=== PATIENT | male | born 1980 | race Caucasian/White ===

== ENCOUNTER → 2017-11-10 | Outpatient (CLI) | payer BC ==
--- NOTE | 2017-11-10 15:47 | NM ---
EXAMINATION TYPE: NM hepatobiliary w CCK DATE OF EXAM: 11/10/2017 COMPARISON: Ultrasound gallbladder 10/23/2017 HISTORY: Right upper quadrant pain TECHNIQUE: After the intravenous administration of 5.43 mCi Tc 99m Mebrofenin hepatobiliary scintigra phy is performed. Immediate images post injection. FINDINGS: There is satisfactory initial accumulation of tracer by the liver. The gallbladder is visualized wit hin 4 minutes. The small bowel activity is noted within 8 minutes. At one hour CCK was administered , patient was injected with 1.45 mcg of Kinevac, and gallbladder ejection fraction is calculated at 1 0 %, however, technical factors likely alter this measurement. IMPRESSION: The exam is limited by overlying bowel. Cystic duct is thought to be patent. Ejection fra ction is not thought likely to be accurate.
== END | disposition home or self-care (01) ==
LOC: RADNMMAIN 12:43
PROVIDERS: ATTEND Internal Medicine Gastroenterology
DX: R10.11 Right upper quadrant pain (principal)
CPT/HCPCS: 78227; A9537; J2805

== ENCOUNTER 2017-11-16 16:49 | Emergency (ER) | payer BC ==
[2017-11-16] MEDS ORDERED: SODIUM CHLORIDE 0.9% 1,000 ML IV STA (20:02)
[2017-11-16] MEDS ORDERED: KETOROLAC 30 MG/ML 1 ML VIAL IVP STA (20:06)
[2017-11-16 20:22] LABS: Basophils % (A) 1 %; Eosinophils # (A) 0.1 k/uL (0-0.7); Eosinophils % (A) 2 %; HCT 45.8 % (39.0-53.0); HGB 15.9 gm/dL (13.0-17.5); Lymphocytes % (A) 25 %; MCH 30.9 pg (25.0-35.0); MCHC 34.7 g/dL (31.0-37.0); Mean Platelet Volume 7.7; Monocytes # (A) 0.5 k/uL (0-1.0); Monocytes % (A) 6 %; Neutrophils % (A) 65 %; Platelet Count 185 k/uL (150-450); RBC 5.15 m/uL (4.30-5.90); RDW 13.5 % (11.5-15.5); WBC 7.8 k/uL (3.8-10.6)
[2017-11-16 20:28] LABS: Appearance,Urine Clear (Clear); Bilirubin,Urine Negative (Negative); Blood,Urine Trace (Negative); Color,Urine Yellow; Glucose,Urine (UA) Negative (Negative); Ketones,Urine Negative (Negative); Leukocyte Esterase,Urine Negative (Negative); Mucus,Urine Few /hpf; Nitrite,Urine Negative (Negative); Protein,Urine Trace (Negative); RBC,Urine 3 /hpf (0-5); Specific Gravity,Urine 1.022 (1.001-1.035); Sperm,Urine Rare /hpf; Urobilinogen,Urine <2.0 mg/dL (<2.0); WBC,Urine <1 /hpf (0-5)
[2017-11-16 20:31] LABS: ALT 37 U/L (21-72); AST 22 U/L (17-59); Albumin 4.6 g/dL (3.5-5.0); Alkaline Phosphatase 73 U/L (38-126); Amylase 62 U/L (30-110); Anion Gap 13 mmol/L; Blood Urea Nitrogen 19 mg/dL (9-20); Calcium 9.8 mg/dL (8.4-10.2); Carbon Dioxide 25 mmol/L (22-30); Chloride 104 mmol/L (98-107); Glucose 85 mg/dL (74-99); Lipase 66 U/L (23-300); Magnesium 2.1 mg/dL (1.6-2.3); Potassium 4.3 mmol/L (3.5-5.1); Sodium 142 mmol/L (137-145); Total Bilirubin 0.5 mg/dL (0.2-1.3)
[2017-11-16 20:42] LABS: Creatine Kinase 107 U/L (55-170)
[2017-11-16 20:55] LABS: Creatine Kinase MB 0.3 ng/mL (0.0-2.4); Troponin I <0.012 ng/mL (0.000-0.034)
--- NOTE | 2017-11-16 21:12 | XR ---
EXAMINATION: XR chest 2V DATE AND TIME: 11/16/2017 8:16 PM ORDERING PROVIDER: Derek Grover MD CLINICAL INDICATION: abdominal pain TECHNIQUE: PA and lateral COMPARISON: None. DESCRIPTION: EKG leads. The cardiac silhouette is not enlarged. The mediastinal and pleural silhouett es are unremarkable. The lungs are clear. The pleural spaces are negative. The skeletal structures are intact without focal findings. The soft tissues are unremarkable. IMPRESSION: NO ACUTE PROCESS.
--- NOTE | 2017-11-16 21:13 | XR ---
EXAMINATION TYPE: XR KUB DATE OF EXAM: 11/16/2017 COMPARISON: 10/23/2017 HISTORY: Pain, history of partial splenectomy TECHNIQUE: 2 upright views FINDINGS: No abnormal gas collections, the bowel gas pattern is normal. Skeletal structures and soft tissues are unremarkable. The visualized lung bases and pleural spaces and cardiac silhouette are unremarkable. IMPRESSION: Negative examination.
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
[2017-11-16] MEDS ORDERED: MAG HYDROX/AL HYDROX/SIMETH 30 ML, HYOSCYAMINE ELIXIR 10 ML, CIMETIDINE HCL 300 MG PO STA ×3 (21:45)
[2017-11-16 22:37] VITALS: BP 110/75; PULSE 87; RESP 20; TEMP 97.8
== END 2017-11-16 22:37 | disposition home or self-care (01) ==
LOC: EC 16:49
DX: K29.70 Gastritis, unspecified, without bleeding (principal); R07.2 Precordial pain; F17.200 Nicotine dependence, unspecified, uncomplicated; Z86.14 Personal history of Methicillin resistant Staphylococcus aureus infection; Z88.0 Allergy status to penicillin; Z88.1 Allergy status to other antibiotic agents; Z88.6 Allergy status to analgesic agent; Z91.010 Allergy to peanuts; Z91.030 Bee allergy status; Z90.49 Acquired absence of other specified parts of digestive tract; Z90.81 Acquired absence of spleen
CPT/HCPCS: 36415; 93005; 85379; 83880; 80053; 82150; 82550; 82553; 83605; 83690; 83735; 84484; 85025; 81001; 71046; 74018; 99284; 96374; 96361 ×2; J1885

== ENCOUNTER 2018-10-22 19:55 | Observation (INO) | payer BC ==
[2018-10-22] MEDS ORDERED: NITROGLYCERIN SL TABS 0.4 MG TAB SUBLINGUAL STA ×3 (20:54)
[2018-10-22] MEDS ORDERED: ASPIRIN 81 MG PO STA (20:54)
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
[2018-10-22 22:24] LABS: Basophils % (A) 1 %; Eosinophils # (A) 0.2 k/uL (0-0.7); Eosinophils % (A) 3 %; HCT 42.2 % (39.0-53.0); HGB 14.5 gm/dL (13.0-17.5); Lymphocytes # (A) 1.3 k/uL (1.0-4.8); Lymphocytes % (A) 21 %; MCH 30.9 pg (25.0-35.0); MCHC 34.4 g/dL (31.0-37.0); Mean Platelet Volume 7.1; Monocytes # (A) 0.4 k/uL (0-1.0); Monocytes % (A) 7 %; Neutrophils # (A) 4.4 k/uL (1.3-7.7); Neutrophils % (A) 67 %; Platelet Count 178 k/uL (150-450); RBC 4.69 m/uL (4.30-5.90); RDW 13.1 % (11.5-15.5); WBC 6.5 k/uL (3.8-10.6)
[2018-10-22 22:27] LABS: INR 0.9 (<1.2); Partial Thromboplastin Time 25.6 sec (22.0-30.0); Prothrombin Time 10.2 sec (9.0-12.0)
[2018-10-22 22:29] LABS: ALT 32 U/L (21-72); AST 21 U/L (17-59); Albumin 3.9 g/dL (3.5-5.0); Alkaline Phosphatase 55 U/L (38-126); Anion Gap 7 mmol/L; Blood Urea Nitrogen 18 mg/dL (9-20); Calcium 9.6 mg/dL (8.4-10.2); Carbon Dioxide 25 mmol/L (22-30); Chloride 109 mmol/L (98-107); Glucose 109 mg/dL (74-99); Magnesium 2.1 mg/dL (1.6-2.3); Sodium 141 mmol/L (137-145); Total Bilirubin 0.2 mg/dL (0.2-1.3); Total Protein 6.3 g/dL (6.3-8.2)
[2018-10-22 22:39] LABS: Creatine Kinase 86 U/L (55-170)
[2018-10-22 22:53] LABS: Creatine Kinase MB 0.6 ng/mL (0.0-2.4); Troponin I <0.012 ng/mL (0.000-0.034)
--- NOTE | 2018-10-22 23:11 | CT ---
EXAMINATION TYPE: CT angio chest DATE OF EXAM: 10/22/2018 10:46 PM COMPARISON: None HISTORY: chest pain, tightness CT DLP: 336.7 mGycm Automated exposure control for dose reduction was used. CONTRAST: CTA scan of the thorax is performed with IV Contrast, patient injected with 94 mL of Isovue 370, pulm onary embolism protocol. There are 3-D post processed images.. FINDINGS: The lungs are clear of infiltrate. There is no pleural effusion. There is no evidence of a pulmonary mass. There is no mediastinal adenopathy. There are no hilar masses. Thoracic aorta appears normal without evidence of aneurysm or dissection. There is normal contrast opacification of the pulmonary arteries. There are no filling defects. Heart size is normal. There is no pericardial effusion. Bony thorax appears intact. IMPRESSION: NORMAL EXAM. NO EVIDENCE OF PULMONARY EMBOLISM.
[2018-10-22] MEDS ORDERED: NITROGLYCERIN SL TABS 0.4 MG TAB SUBLINGUAL PRN (23:50)
[2018-10-23 00:50] VITALS: BMI 21.7
[2018-10-23] MEDS: NITROGLYCERIN OINT 1 INCH/GM PACKET TOPICAL SCH ×3 (01:20→12:59)
[2018-10-23 03:46] VITALS: TEMP 97.9
[2018-10-23 04:30] LABS: Cholesterol 148 mg/dL (<200); HDL Cholesterol 53 mg/dL (40-60); LDL Cholesterol,Calculated 79 mg/dL (0-99); Triglycerides 81 mg/dL (<150)
[2018-10-23 04:34] LABS: Creatine Kinase 80 U/L (55-170)
[2018-10-23 04:47] LABS: Creatine Kinase MB 0.5 ng/mL (0.0-2.4); Troponin I <0.012 ng/mL (0.000-0.034)
[2018-10-23] MEDS ORDERED: ASPIRIN 325 MG TAB PO SCH (09:00)
[2018-10-23 10:12] LABS: Creatine Kinase 74 U/L (55-170)
[2018-10-23 10:25] LABS: Creatine Kinase MB 0.4 ng/mL (0.0-2.4); Troponin I <0.012 ng/mL (0.000-0.034)
--- NOTE | 2018-10-23 11:41 | P.CRDCN ---
History of Present Illness Consult reason: chest pain History of present illness: This is Dr. Baltazar dictating a consult on this patient The patient was interviewed and examined by me IMPRESSION / ASSESSMENT: Atypical chest discomfort normal cardiac enzymes Current smoker No diabetes hypertension and dyslipidemia PLAN: Patient may go home from a cardiac standpoint today and outpatient follow-up and workup with Dr. Martínez HPI 37-year-old male patient presenting with chest discomfort while sitting at the desk. He described it as left-sided tightness without any associated shortness of breath nausea or diaphoresis Normal cardiac enzymes No D dimers, CT of the chest into for pulmonary embolism per radiology ROS: No fever chills or rigors, no cough, phlegm or expectoration, no nausea, vomiting or diarrhea, no hematuria, dysuria, no musculoskeletal complaints, no strokes or seizures, no skin lesions. EXAMINATION Normal blood pressure normal heart rates Breath sounds are clear no rhonchi no crackles Heart sounds S1-S2 normal no murmurs or gallop. Abdomen soft nontender extremities warm no edema No chest wall tenderness Recent hand injury and it is in a cast REVIEW OF LABS, ECG No evidence for pulmonary embolus him on CT Normal cardiac enzymes 2 normal electrolytes Twelve-lead ECG shows early repolarization abnormality no evidence for acute myocardial infarction NH segment normal Past Medical History Past Medical History: GERD/Reflux Additional Past Medical History / Comment(s): chronic ABDOMINAL PAIN and intestinal issues currently seeing GI doc, fractures right hand currently in cast History of Any Multi-Drug Resistant Organisms: MRSA Date of last positivie culture/infection: 2006 MDRO Source:: left finger Past Surgical History: Hernia Repair Additional Past Surgical History / Comment(s): partial splenectomy, LEFT INDEX FINGER surg Past Anesthesia/Blood Transfusion Reactions: No Reported Reaction Past Psychological History: No Psychological Hx Reported Smoking Status: Current every day smoker Past Alcohol Use History: None Reported Past Drug Use History: Marijuana - Past Family History Mother Family Medical History: No Reported History Medications and Allergies Home Medications Medication Instructions Recorded Confirmed Type Omeprazole [PriLOSEC] 20 mg PO DAILY PRN 10/22/18 10/22/18 History Allergies Allergy/AdvReac Type Severity Reaction Status Date / Time clindamycin Allergy Abdominal Verified 10/22/18 20:49 Pain ibuprofen [From Advil] Allergy HIVES Verified 10/22/18 20:49 peanut Allergy Anaphylaxis Verified 10/22/18 20:49 Penicillins Allergy SWELLING Verified 10/22/18 20:49 OF THROAT venom-honey bee AdvReac Anaphylaxis Verified 10/22/18 20:49 [bee venom (honey bee)] Physical Exam Vitals: Vital Signs Temp Pulse Pulse Resp BP BP Pulse Ox 10/23/18 03:53 16 10/23/18 03:44 97.9 F 49 L 16 116/65 98 10/23/18 01:00 16 10/23/18 00:37 98.2 F 55 L 16 121/71 98 10/23/18 00:00 57 L 14 115/65 96 10/22/18 23:00 61 13 116/71 96 10/22/18 22:12 98.2 F 53 L 16 123/81 98 10/22/18 22:00 53 L 14 123/81 97 10/22/18 21:52 78 12 97 10/22/18 19:58 97.8 F 91 16 138/77 100 Intake and Output 10/22/18 10/23/18 10/23/18 22:59 06:59 14:59 Other: Voiding Method Toilet # Voids 2 Weight 72.575 kg 72.5 kg Results 10/22/18 21:45 10/22/18 21:45 Cardiac Enzymes 10/22/18 10/22/18 10/23/18 Range/Units 21:45 21:45 03:13 AST 21 (17-59) U/L CK-MB (CK-2) 0.6 0.5 (0.0-2.4) ng/mL Troponin I <0.012 <0.012 (0.000-0.034) ng/mL Coagulation 10/22/18 Range/Units 21:45 PT 10.2 (9.0-12.0) sec APTT 25.6 (22.0-30.0) sec Lipids 10/23/18 Range/Units 03:13 Triglycerides 81 (<150) mg/dL Cholesterol 148 (<200) mg/dL HDL Cholesterol 53 (40-60) mg/dL CBC 10/22/18 Range/Units 21:45 WBC 6.5 (3.8-10.6) k/uL RBC 4.69 (4.30-5.90) m/uL Hgb 14.5 (13.0-17.5) gm/dL Hct 42.2 (39.0-53.0) % Plt Count 178 (150-450) k/uL Comprehensive Metabolic Panel 10/22/18 Range/Units 21:45 Sodium 141 (137-145) mmol/L Potassium 4.0 (3.5-5.1) mmol/L Chloride 109 H (98-107) mmol/L Carbon Dioxide 25 (22-30) mmol/L BUN 18 (9-20) mg/dL Creatinine 0.86 (0.66-1.25) mg/dL Glucose 109 H (74-99) mg/dL Calcium 9.6 (8.4-10.2) mg/dL AST 21 (17-59) U/L ALT 32 (21-72) U/L Alkaline Phosphatase 55 (38-126) U/L Total Protein 6.3 (6.3-8.2) g/dL Albumin 3.9 (3.5-5.0) g/dL Current Medications Generic Name Dose Route Start Last Admin Trade Name Freq PRN Reason Stop Dose Admin Aspirin 325 mg 10/23/18 09:00 Aspirin PO DAILY [facility] Nitroglycerin 1 inch 10/23/18 00:00 10/23/18 06:04 Nitro-Bid Oint TOPICAL Not Given Q6HR LE[facility]ARDO Nitroglycerin 0.4 mg 10/22/18 23:50 Nitrostat SUBLINGUAL Q5M PRN Chest Pain Sodium Chloride 10 ml 10/23/18 09:00 Saline Flush IV BID LEOBARDO Intake and Output 10/22/18 10/23/18 10/23/18 22:59 06:59 14:59 Other: Voiding Method Toilet # Voids 2 Weight 72.575 kg 72.5 kg 10/22/18 21:45 10/22/18 21:45
[2018-10-23 11:43] VITALS: BP 99/61; PULSE 54; RESP 16
--- NOTE | 2018-10-23 16:28 | P.HPIM ---
History of Present Illness Combined H&P and discharge summary This is a pleasant 37 years old male with past medical history of GERD, fracture of the right hand status post cast of his right hand and distal forearm who presents because of left-sided chest pain, close to his left armpit , nonradiating, about 6/10 in severity, and down today to 1/10 which is mild, felt like type of one-day duration. No associated nausea vomiting no dyspnea or sweating or dizziness. Patient received aspirin 325 mg this morning and had started that well. His chest pain is improved. Patient has been already evaluated by clothing worker Dr. Martínez recommended him to be discharged today and follow up with him in the office as an outpatient. Patient himself feels ready to be discharged home. Problems and management plan was discussed with the patient and he verbalized understanding and acceptance. Patient was found stable and can be discharged home however he needs follow-up as an outpatient. Patient agrees to call and make appointment with Dr. Martínez the clothing worker and his PCP Dr. Vincent in one week for both of them as instructed. No appointments could be made today by medical staff as it is weakened. Gen: patient is a AAOx3, no distress CVS: S1-S2, RRR, no murmur Lungs: B/L CTA, no wheezing Abdomen: soft, no distention, no tenderness, positive bowel sounds Extremity: no leg edema or induration Time spent more than 35 minutes Past Medical History Past Medical History: GERD/Reflux Additional Past Medical History / Comment(s): chronic ABDOMINAL PAIN and intestinal issues currently seeing GI doc, fractures right hand currently in cast History of Any Multi-Drug Resistant Organisms: MRSA Date of last positivie culture/infection: 2006 MDRO Source:: left finger Past Surgical History: Hernia Repair Additional Past Surgical History / Comment(s): partial splenectomy, LEFT INDEX FINGER surg Past Anesthesia/Blood Transfusion Reactions: No Reported Reaction Past Psychological History: No Psychological Hx Reported Smoking Status: Current every day smoker Past Alcohol Use History: None Reported Past Drug Use History: Marijuana - Past Family History Mother Family Medical History: No Reported History Medications and Allergies Home Medications Medication Instructions Recorded Confirmed Type Omeprazole [PriLOSEC] 20 mg PO DAILY PRN 10/22/18 10/22/18 History Allergies Allergy/AdvReac Type Severity Reaction Status Date / Time clindamycin Allergy Abdominal Verified 12/28/18 20:49 Pain ibuprofen [From Advil] Allergy HIVES Verified 10/22/18 20:49 peanut Allergy Anaphylaxis Verified 10/22/18 20:49 Penicillins Allergy SWELLING Verified 10/22/18 20:49 OF THROAT venom-honey bee AdvReac Anaphylaxis Verified 10/22/18 20:49 [bee venom (honey bee)] Physical Exam Vitals: Vital Signs Temp Pulse Pulse Resp BP BP Pulse Ox 10/23/18 11:42 97.9 F 54 L 16 99/61 98 10/23/18 08:10 97.9 F 51 L 14 124/71 98 10/23/18 07:24 99 10/23/18 03:53 16 10/23/18 03:44 97.9 F 49 L 16 116/65 98 10/23/18 01:00 16 10/23/18 00:37 98.2 F 55 L 16 121/71 98 10/23/18 00:00 57 L 14 115/65 96 10/22/18 23:00 61 13 116/71 96 10/22/18 22:12 98.2 F 53 L 16 123/81 98 10/22/18 22:00 53 L 14 123/81 97 10/22/18 21:52 78 12 97 10/22/18 19:58 97.8 F 91 16 138/77 100 Intake and Output 10/23/18 10/23/18 10/23/18 06:59 14:59 22:59 Other: Voiding Method Toilet Toilet # Voids 2 1 Weight 72.5 kg Results CBC & Chem 7: 10/22/18 21:45 10/22/18 21:45 Labs: Abnormal Lab Results - Last 24 Hours (Table) 10/22/18 Range/Units 21:45 Chloride 109 H (98-107) mmol/L Glucose 109 H (74-99) mg/dL Thrombosis Risk Factor Assmnt - Choose All That Apply Any of the Below Risk Factors Present?: No
--- NOTE | 2018-10-23 16:29 | P.DS ---
Providers Date of admission: 10/22/18 23:50 Attending physician: Jazmyne Whelan Consults: 10/22/18 23:50 Consult Physician Urgent Consulting Provider: Courtney Stevens Consult Reason/Comments: cp Do you want consulting provider notified?: Yes Primary care physician: Marianela Vincent [facility] Course: Please refer to my H&P Plan - Discharge Summary New Discharge Prescriptions: New Aspirin 325 mg PO DAILY #10 tab Continue Omeprazole [PriLOSEC] 20 mg PO DAILY PRN PRN Reason: Heartburn Discharge Medication List Omeprazole [PriLOSEC] 20 mg PO DAILY PRN 10/22/18 [History] Aspirin 325 mg PO DAILY #10 tab 10/23/18 [Rx] Follow up Appointment(s)/Referral(s): Shaquille Baltazar MD [STAFF PHYSICIAN] - 1 Week (office will call the patient with a time and date to follow up for stress test.) Marianela Vincent III, MD [Primary Care Provider] - 1-2 days Patient Instructions/Handouts: Chest Pain (DC)
== END 2018-10-23 16:55 | disposition home or self-care (01) ==
LOC: EC 19:55 → 1SOBS 23:50
PROVIDERS: ADMIT Internal Medicine; ATTEND Internal Medicine
DX: R07.89 Other chest pain (principal); R20.2 Paresthesia of skin; K21.9 Gastro-esophageal reflux disease without esophagitis; F17.200 Nicotine dependence, unspecified, uncomplicated; G89.29 Other chronic pain; S62.91XA Unspecified fracture of right hand, initial encounter for closed fracture; R10.9 Unspecified abdominal pain; Z79.899 Other long term (current) drug therapy; Z88.0 Allergy status to penicillin; Z88.6 Allergy status to analgesic agent; Z88.1 Allergy status to other antibiotic agents; Z91.030 Bee allergy status; Z91.010 Allergy to peanuts; Z86.14 Personal history of Methicillin resistant Staphylococcus aureus infection; Z90.81 Acquired absence of spleen; X58.XXXA Exposure to other specified factors, initial encounter
CPT/HCPCS: 99285; 36415; 94760; 93005; 80061; 80053; 82550 ×2; 82553 ×2; 83735; 84484 ×2; 85025; 85610; 85730; 71275; G0378 ×2; Q9967

== ENCOUNTER 2019-02-05 11:10 | Emergency (ER) | payer BC ==
[2019-02-05 11:15] VITALS: TEMP 97.9
--- NOTE | 2019-02-05 12:13 | ED ---
Skin/Abscess/FB HPI - General Chief complaint: Skin/Abscess/Foreign Body Stated complaint: RASH ON HANDS AND BODY Time Seen by Provider: 02/05/19 11:18 Source: patient, RN notes reviewed, old records reviewed Mode of arrival: ambulatory Limitations: no limitations - History of Present Illness Initial comments: 38-year-old male presents today with a few days of pruritic rash over his hands. He states that going up his arms and his neck and groin. Reports is also some papular like lesions. Patient states he has no exposures to similar rashes. Denies any recent travel history. Denies any fever or chills or other complaints. - Related Data Home Medications Medication Instructions Recorded Confirmed Omeprazole [PriLOSEC] 20 mg PO DAILY PRN 10/22/18 10/22/18 Previous Rx's Medication Instructions Recorded Aspirin 325 mg PO DAILY #10 tab 10/23/18 Hydrocortisone [Hydrocortisone 1 applic TOPICAL TID #28 gm 02/05/19 0.05%] Permethrin 5% Cream [Elimite] 1 applic TOPICAL ONCE #60 cream..g. 02/05/19 methylPREDNISolone Dose Pack 4 mg PO DIRECTED #21 package 02/05/19 [Medrol Dose Pack] Allergies Allergy/AdvReac Type Severity Reaction Status Date / Time clindamycin Allergy Abdominal Verified 02/05/19 11:15 Pain ibuprofen [From Advil] Allergy HIVES Verified 02/05/19 11:15 peanut Allergy Anaphylaxis Verified 02/05/19 11:15 Penicillins Allergy SWELLING Verified 02/05/19 11:15 OF THROAT venom-honey bee AdvReac Anaphylaxis Verified 02/05/19 11:15 [bee venom (honey bee)] Review of Systems ROS Statement: Those systems with pertinent positive or pertinent negative responses have been documented in the HPI. ROS Other: All systems not noted in ROS Statement are negative. Past Medical History Past Medical History: GERD/Reflux Additional Past Medical History / Comment(s): chronic ABDOMINAL PAIN and intestinal issues currently seeing GI doc, fractures right hand currently in cast History of Any Multi-Drug Resistant Organisms: MRSA Date of last positivie culture/infection: 2006 MDRO Source:: left finger Past Surgical History: Hernia Repair Additional Past Surgical History / Comment(s): partial splenectomy, LEFT INDEX FINGER surg Past Anesthesia/Blood Transfusion Reactions: No Reported Reaction Past Psychological History: No Psychological Hx Reported Smoking Status: Current every day smoker Past Alcohol Use History: None Reported Past Drug Use History: Marijuana - Past Family History Mother Family Medical History: No Reported History General Exam - General Exam Comments Initial Comments: (38-year-old male. No distress. Limitations: no limitations General appearance: alert, in no apparent distress Head exam: Present: atraumatic, normocephalic, normal inspection Eye exam: Present: normal appearance, PERRL, EOMI. Absent: scleral icterus, conjunctival injection, periorbital swelling ENT exam: Present: normal exam, mucous membranes moist Neck exam: Present: normal inspection. Absent: tenderness, meningismus, lymphadenopathy Respiratory exam: Present: normal lung sounds bilaterally. Absent: respiratory distress, wheezes, rales, rhonchi, stridor Cardiovascular Exam: Present: regular rate, normal rhythm, normal heart sounds. Absent: systolic murmur, diastolic murmur, rubs, gallop, clicks GI/Abdominal exam: Present: soft, normal bowel sounds. Absent: distended, tenderness, guarding, rebound, rigid Neurological exam: Present: alert, oriented X3, CN II-XII intact Psychiatric exam: Present: normal affect, normal mood Skin exam: Present: warm, dry, intact, normal color, rash (Pretty papular rash with excoriations over the webspaces of fingers wrists and arms.) Course Vital Signs 02/05/19 02/05/19 11:11 12:25 Temperature 97.9 F Pulse Rate 65 55 L Respiratory 18 16 Rate Blood Pressure 127/65 118/80 O2 Sat by Pulse 98 98 Oximetry Medical Decision Making - Medical Decision Making 38-year-old male presents with a few days of pruritic rash over the web space of fingers and dorsum hands. no History of sick contacts or travel. At this time patient's rash is erythematous papular lesions with evidence of excoriations. Some linear areas between the papular lesions concern for tunneling of scabies. Patient was started on permethrin cream. Discussed appropriate treatment including washing all the sheets and clothing in hot water. All questions answered return parameters were discussed. Disposition Clinical Impression: Scabies Disposition: HOME SELF-CARE Condition: Good Instructions (If sedation given, give patient instructions): Scabies (ED) Additional Instructions: Follow-up with primary care doctor. Return to emergency department if any alarming signs or symptoms occur. Wash all bedding in hot water. Patient should apply the cream at night sleep with it on for 8 hours and then re-shower in the morning. Repeat treatment in one week. Prescriptions: Permethrin 5% Cream [Elimite] 1 applic TOPICAL ONCE #60 cream..g. Hydrocortisone [Hydrocortisone 0.05%] 1 applic TOPICAL TID #28 gm methylPREDNISolone Dose Pack [Medrol Dose Pack] 4 mg PO DIRECTED #21 package Is patient prescribed a controlled substance at d/c from ED?: No Referrals: Marianela Vincent III, MD [Primary Care Provider] - 1-2 days Time of Disposition: 12:10
[2019-02-05 12:30] VITALS: BP 118/80; PULSE 55; RESP 16
== END 2019-02-05 12:25 | disposition home or self-care (01) ==
LOC: EC 11:10
DX: B86 Scabies (principal); F17.200 Nicotine dependence, unspecified, uncomplicated; Z88.0 Allergy status to penicillin; Z88.1 Allergy status to other antibiotic agents; Z88.6 Allergy status to analgesic agent; Z91.010 Allergy to peanuts; Z91.030 Bee allergy status; Z86.14 Personal history of Methicillin resistant Staphylococcus aureus infection
CPT/HCPCS: 99283

== ENCOUNTER 2019-04-18 17:18 | Emergency (ER) | payer BC ==
[2019-04-18 17:52] VITALS: BP 110/71; PULSE 63; RESP 16; TEMP 98.3
--- NOTE | 2019-04-18 18:43 | ED ---
General Adult HPI - General Chief complaint: Skin/Abscess/Foreign Body Stated complaint: Poss tick on back Time Seen by Provider: 04/18/19 18:11 Source: patient, RN notes reviewed Mode of arrival: ambulatory Limitations: no limitations - History of Present Illness Initial comments: 38-year-old male presents to the emergency department for a chief complaint of possible tick bite times one day. Patient states he was working out in the [email or web address] with his friends. States that his friends had a tick on them so he did a full body check before showering. Patient states he noticed a spot on his back that he was not sure if he had been there before. Pt thought it could be a tick. Patient states he was squeezing on it to try to get any parts out but nothing would come out. States he accidentally scratched her. Patient states he wanted someone to look at it to make sure was not a tick. Patient has no other complaints at this time including shortness of breath, chest pain, abdominal pain, nausea or vomiting, headache, or visual changes. - Related Data Home Medications Medication Instructions Recorded Confirmed Omeprazole [PriLOSEC] 20 mg PO DAILY PRN 10/22/18 10/22/18 Allergies Allergy/AdvReac Type Severity Reaction Status Date / Time clindamycin Allergy Abdominal Verified 04/18/19 17:52 Pain ibuprofen [From Advil] Allergy HIVES Verified 04/18/19 17:52 peanut Allergy Anaphylaxis Verified 04/18/19 17:52 Penicillins Allergy SWELLING Verified 04/18/19 17:52 OF THROAT venom-honey bee AdvReac Anaphylaxis Verified 04/18/19 17:52 [bee venom (honey bee)] Review of Systems ROS Statement: Those systems with pertinent positive or pertinent negative responses have been documented in the HPI. ROS Other: All systems not noted in ROS Statement are negative. Past Medical History Past Medical History: GERD/Reflux Additional Past Medical History / Comment(s): chronic ABDOMINAL PAIN and intestinal issues currently seeing GI doc, fractures right hand currently in cast History of Any Multi-Drug Resistant Organisms: MRSA Date of last positivie culture/infection: 2006 MDRO Source:: left finger Past Surgical History: Hernia Repair Additional Past Surgical History / Comment(s): partial splenectomy, LEFT INDEX FINGER surg Past Anesthesia/Blood Transfusion Reactions: No Reported Reaction Past Psychological History: No Psychological Hx Reported Smoking Status: Current every day smoker Past Alcohol Use History: None Reported Past Drug Use History: Marijuana - Past Family History Mother Family Medical History: No Reported History General Exam Limitations: no limitations General appearance: alert, in no apparent distress Head exam: Present: atraumatic, normocephalic, normal inspection Eye exam: Present: normal appearance, PERRL, EOMI. Absent: scleral icterus, conjunctival injection, periorbital swelling ENT exam: Present: normal exam, mucous membranes moist Neck exam: Present: normal inspection, full ROM. Absent: tenderness, meningismus, lymphadenopathy Respiratory exam: Present: normal lung sounds bilaterally. Absent: respiratory distress, wheezes, rales, rhonchi, stridor Cardiovascular Exam: Present: regular rate, normal rhythm, normal heart sounds. Absent: systolic murmur, diastolic murmur, rubs, gallop, clicks GI/Abdominal exam: Present: soft, normal bowel sounds. Absent: distended, tenderness, guarding, rebound, rigid Back exam: Present: other (Patient has a small macule noted on the right lower back. There is erythema minimally around this likely from patient squeezing the area. No evidence of abscess or area of fluctuance. No evidence of cellulitis. No tick bite or remaining parts of tick.) Neurological exam: Present: alert, oriented X3, CN II-XII intact Psychiatric exam: Present: normal affect, normal mood Course Vital Signs 04/18/19 17:50 Temperature 98.3 F Pulse Rate 63 Respiratory 16 Rate Blood Pressure 110/71 O2 Sat by Pulse 99 Oximetry Medical Decision Making - Medical Decision Making 38-year-old male presents to the emergency department for a chief complaint of tick bite. Patient states he was on the [place] with his friends. States that before he showered he did a full body check and noticed a black spot. States he squeezed this area but cannot get any tick parts out so came to the emergency department so we could look at it. On exam the area patient is worried about appears to be a macule. There is mild erythema around the area from patient squeezing this but no evidence of cellulitis. No abscess or fluctuant area. No evidence of tick bite or remaining parts of tick. I believe patient mistake macule for tick. At this time I told patient to keep an eye on it and to follow up with primary care. Patient will return here for any worsening symptoms. Disposition Clinical Impression: Skin macule Disposition: HOME SELF-CARE Condition: Good Instructions (If sedation given, give patient instructions): Acute Rash (ED) Additional Instructions: Please follow up with primary care in 1-2 days. Please return here if you have any worsening symptoms. Is patient prescribed a controlled substance at d/c from ED?: No Referrals: Marianela Vincent III, MD [Primary Care Provider] - 1-2 days Time of Disposition: 18:41
== END 2019-04-18 18:46 | disposition home or self-care (01) ==
LOC: EC 17:18
DX: L98.8 Other specified disorders of the skin and subcutaneous tissue (principal); F17.200 Nicotine dependence, unspecified, uncomplicated; Z86.14 Personal history of Methicillin resistant Staphylococcus aureus infection; Z88.1 Allergy status to other antibiotic agents; Z88.0 Allergy status to penicillin; Z88.6 Allergy status to analgesic agent; Z91.030 Bee allergy status; Z91.010 Allergy to peanuts
CPT/HCPCS: 99281

== ENCOUNTER → 2020-01-04 | Outpatient (CLI) | payer BC ==
--- NOTE | 2020-01-04 15:20 | MR ---
EXAMINATION TYPE: MR knee LT wo con DATE OF EXAM: 01/04/2020 COMPARISON: NONE HISTORY: Left knee pain per order. Outer and posterior pain with swelling for 3 weeks per patient aft er injury TECHNIQUE: Multiplanar, multisequence images of the knee is performed without IV contrast. FINDINGS: MEDIAL MENISCUS: Anterior horn is intact without tear. Abnormal signal posterior horn predominantly o blique and triangular-shaped and configuration extends to inferior articular surface sagittal image 2 4. LATERAL MENISCUS: Anterior and posterior horns are intact without tear. CRUCIATE LIGAMENTS: The anterior and posterior cruciate ligaments are intact and unremarkable. COLLATERAL LIGAMENTS: The medial collateral ligament and lateral collateral ligament complex are inta ct and unremarkable. EXTENSOR MECHANISM: Visualized quadriceps and patellar tendons are intact. EFFUSION: Small suprapatellar joint effusion seen best sagittal image 14. POPLITEAL CYST: Small popliteal/tang cyst measuring 3.9 cm long axis as image 23. TRICOMPARTMENT SPACES: Tricompartment joint space is fairly well-maintained. No significant spurring is seen. CARTILAGE: The tricompartment articular cartilage is preserved. BONE MARROW SIGNAL: No focal abnormal marrow signal is appreciated. OTHER: No additional significant abnormality is appreciated. IMPRESSION: 1. Oblique full thickness tear posterior horn of medial meniscus. 2. Small suprapatellar joint effusion. 3. Small popliteal cyst.
== END | disposition home or self-care (01) ==
LOC: RADMRIMAIN 06:42
PROVIDERS: ATTEND Orthopaedic Surgery
DX: S83.242A Other tear of medial meniscus, current injury, left knee, initial encounter (principal); M71.22 Synovial cyst of popliteal space [Baker], left knee

== ENCOUNTER 2021-05-17 17:59 | Emergency (ER) | payer BC ==
[2021-05-17 18:24] VITALS: BP 125/80; PULSE 77; RESP 18; TEMP 98.1
--- NOTE | 2021-05-17 19:11 | ED ---
General Adult HPI - General Chief complaint: Skin/Abscess/Foreign Body Stated complaint: Dog bite, eye injury Source: patient, RN notes reviewed Mode of arrival: ambulatory Limitations: physical limitation - History of Present Illness Initial comments: 40-year-old white male, alert and oriented 4, presents to the emergency room with complaints of playing with his beagle about an hour prior to arrival and the dog scratched his left upper eyelid. Patient states that his tetanus is up-to-date. He wanted to make sure he didn't need any stitches. Patient denies any other injuries. Patient denies any medical history states he is a half-pack a day smoker -: hour(s) (1) Location: face (Left upper eyelid) Radiation: non-radiation Severity scale (1-10): 3 Quality: other (Stinging) Consistency: constant Improves with: none Worsens with: none Associated Symptoms: denies other symptoms Treatments Prior to Arrival: none - Related Data Home Medications Medication Instructions Recorded Confirmed Omeprazole [PriLOSEC] 20 mg PO DAILY PRN 10/22/18 10/22/18 Allergies Allergy/AdvReac Type Severity Reaction Status Date / Time clindamycin Allergy Abdominal Verified 05/17/21 18:24 Pain ibuprofen [From Advil] Allergy HIVES Verified 05/17/21 18:24 peanut Allergy Anaphylaxis Verified 05/17/21 18:24 Penicillins Allergy SWELLING Verified 05/17/21 18:24 OF THROAT venom-honey bee AdvReac Anaphylaxis Verified 05/17/21 18:24 [bee venom (honey bee)] Review of Systems ROS Statement: Those systems with pertinent positive or pertinent negative responses have been documented in the HPI. ROS Other: All systems not noted in ROS Statement are negative. Past Medical History Past Medical History: GERD/Reflux Additional Past Medical History / Comment(s): chronic ABDOMINAL PAIN and intestinal issues currently seeing GI doc, fractures right hand History of Any Multi-Drug Resistant Organisms: MRSA Date of last positivie culture/infection: 2006 MDRO Source:: left finger Past Surgical History: Hernia Repair Additional Past Surgical History / Comment(s): partial splenectomy, LEFT INDEX FINGER surg Past Anesthesia/Blood Transfusion Reactions: No Reported Reaction Past Psychological History: No Psychological Hx Reported Smoking Status: Current every day smoker Past Alcohol Use History: None Reported Past Drug Use History: Marijuana - Past Family History Mother Family Medical History: No Reported History General Exam Limitations: physical limitation General appearance: alert, in no apparent distress Head exam: Present: atraumatic, normocephalic, normal inspection Eye exam: Present: normal appearance, PERRL, EOMI, other (1 cm laceration to the left upper eyelid, superficial and well approximated). Absent: scleral icterus, conjunctival injection, periorbital swelling ENT exam: Present: normal exam, normal oropharynx, mucous membranes moist Neck exam: Present: normal inspection, full ROM. Absent: tenderness, meningismus, lymphadenopathy, thyromegaly Respiratory exam: Present: normal lung sounds bilaterally. Absent: respiratory distress, wheezes, rales, rhonchi, stridor Cardiovascular Exam: Present: regular rate, normal rhythm, normal heart sounds. Absent: systolic murmur, diastolic murmur, rubs, gallop, clicks GI/Abdominal exam: Present: soft, normal bowel sounds. Absent: distended, tenderness, guarding, rebound, rigid Extremities exam: Present: normal inspection, full ROM, normal capillary refill. Absent: tenderness, pedal edema, joint swelling, calf tenderness Back exam: Present: normal inspection, full ROM. Absent: tenderness, CVA tenderness (R), CVA tenderness (L), muscle spasm, paraspinal tenderness, vertebral tenderness, rash noted Neurological exam: Present: alert, oriented X3, CN II-XII intact Psychiatric exam: Present: normal affect, normal mood Skin exam: Present: warm, dry, intact, normal color. Absent: rash, cyanosis, diaphoretic, erythema, petechiae, pallor, mottled Course Vital Signs 05/17/21 18:21 Temperature 98.1 F Pulse Rate 77 Respiratory 18 Rate Blood Pressure 125/80 O2 Sat by Pulse 97 Oximetry Medical Decision Making - Medical Decision Making Patient's tetanus shot is up-to-date. He has no visual changes, blurred vision or eye pain. Superficial laceration to the left eyebrow was cleaned with normal saline and closed with Dermabond glue. Dr. Malone at bedside to evaluate and was agreeable to this plan of care. Patient was discharged to follow up with ophthalmology as needed. Disposition Clinical Impression: Eyelid laceration Disposition: HOME SELF-CARE Condition: Good Instructions (If sedation given, give patient instructions): Laceration (ED), Skin Adhesive Care (ED) Additional Instructions: Keep clean and dry. Follow-up with the primary care doctor or ophthalmology in 1 week as needed. Return for any signs and symptoms of infection including drainage, redness or fever. Is patient prescribed a controlled substance at d/c from ED?: No Referrals: Marianela Vincent III, MD [Primary Care Provider] - 1-2 days Kg Ruiz MD [STAFF PHYSICIAN] - 1-2 days Time of Disposition: 19:35
[2021-05-17] MEDS ORDERED: TOPICAL SKIN ADHESIVE 1 EACH AMP TOPICAL ONE (19:31)
== END 2021-05-17 20:24 | disposition home or self-care (01) ==
LOC: EC 17:59
DX: S01.112A Laceration without foreign body of left eyelid and periocular area, initial encounter (principal); K21.9 Gastro-esophageal reflux disease without esophagitis; F17.210 Nicotine dependence, cigarettes, uncomplicated; F12.90 Cannabis use, unspecified, uncomplicated; Z88.0 Allergy status to penicillin; Z88.6 Allergy status to analgesic agent; W54.0XXA Bitten by dog, initial encounter
CPT/HCPCS: 12011; 99282